=== PATIENT | male | born 1970 | race Hispanic/Latino ===

== ENCOUNTER 2018-01-30 13:07 | Inpatient (IN) | payer BC ==
[2018-01-30 13:07] VITALS: BMI 25.7
[2018-01-30 14:16] LABS: BASO # 0.1 K/uL (0.0-0.2); BASO % 0.8 % (0.0-2.0); EOS # 0.1 K/uL (0.0-0.7); EOS % 0.9 % (0.0-4.0); LYMPH # 2.1 K/uL (1.0-4.3); LYMPH % 29.7 % (20.0-40.0); MEAN CELL VOLUME 95.2 fL (80.0-94.0); MEAN CORPUSCULAR HEMOGLOBIN 33.6 pg (27.0-31.0); MEAN CORPUSCULAR HGB CONC 35.3 g/dL (33.0-37.0); MEAN PLATELET VOLUME 8.4 fL (7.2-11.7); MONO # 0.7 K/uL (0.0-0.8); MONO % 9.9 % (0.0-10.0); NEUT # 4.1 K/uL (1.8-7.0); NEUT % 58.7 % (50.0-75.0); NRBC % 0.1 % (0.0-2.0); RBC 4.77 Mil/uL (4.40-5.90)
[2018-01-30 14:20] LABS: URINE BILIRUBIN NEGATIVE (NEGATIVE); URINE BLOOD NEGATIVE (NEGATIVE); URINE CLARITY Clear (Clear); URINE COLOR Straw (YELLOW); URINE GLUCOSE (UA) NORMAL (Normal); URINE LEUKOCYTE ESTERASE NEG Leu/uL (Negative); URINE PROTEIN NEGATIVE (NEGATIVE); URINE UROBILINOGEN NORMAL mg/dL (0.2-1.0)
[2018-01-30 14:24] LABS: ALB/GLOB RATIO 1.1 (1.0-2.1); ALBUMIN 4.4 g/dL (3.5-5.0); ALT/SGPT 20 U/L (21-72); AST/SGOT 50 U/L (17-59); BLOOD UREA NITROGEN 4 mg/dL (9-20); CALCIUM 9.2 mg/dl (8.6-10.4); GFR AFRICAN-AMERICAN > 60; GFR NON-AFRICAN AMERICAN > 60
[2018-01-30 14:35] LABS: BARBITURATES, UR NEGATIVE (NEGATIVE); BENZODIAZEPINES, UR NEGATIVE (NEGATIVE); OPIATES, UR NEGATIVE (NEGATIVE); PHENCYCLIDINE, UR NEGATIVE (NEGATIVE)
--- NOTE | 2018-01-30 15:02 | C.PDOC ---
History Of Present Illness 47-year-old male, presents to the emergency department requesting detox from alcohol. Patient states he last drank today. No SI/HI. Denies PMH. Last detox attempt approx 2 yearas ago. Pt has no complaints. Time Seen by Provider: 01/30/18 13:38 Chief Complaint (Nursing): Substance Abuse History Per: Patient History/Exam Limitations: no limitations Past Medical History Reviewed: Historical Data, Nursing Documentation, Vital Signs Vital Signs: Last Vital Signs Temp 98.4 F 01/30/18 14:56 Pulse 92 H 01/30/18 14:56 Resp 18 01/30/18 14:56 BP 125/83 01/30/18 14:56 Pulse Ox 100 01/30/18 15:05 - Medical History PMH: Anxiety, Depression, Fractures (vertebral) - [facility] Procedures ALCOHOL DETOXIFICATION (11/18/13) INJECT/INFUSE NEC (10/16/13) PSYCHIAT DRUG THERAP NEC (11/20/13) Family History: States: No Known Family Hx - Social History Hx Tobacco Use: No Hx Alcohol Use: Yes Hx Substance Use: No - Immunization History Hx Tetanus Toxoid Vaccination: No Hx Influenza Vaccination: Yes Hx Pneumococcal Vaccination: No Review Of Systems Constitutional: Negative for: Fever, Chills Cardiovascular: Negative for: Chest Pain Respiratory: Negative for: Shortness of Breath Gastrointestinal: Negative for: Vomiting Musculoskeletal: Negative for: Back Pain Skin: Negative for: Rash Neurological: Negative for: Weakness, Numbness, Headache, Dizziness Psych: Negative for: Suicidal ideation, Withdrawal Physical Exam - Physical Exam Appears: Non-toxic, No Acute Distress, Other (EtOh on breath. No tremors. ) Skin: Normal Color, Warm, Dry, No Rash Head: Atraumatic, Normacephalic Eye(s): bilateral: Normal Inspection, EOMI Nose: Normal Oral Mucosa: Moist Neck: Normal ROM, Supple Chest: Symmetrical Cardiovascular: Rhythm Regular Respiratory: Normal Breath Sounds, No Accessory Muscle Use Extremity: Normal ROM, No Deformity, No Swelling Neurological/Psych: Oriented x3, Normal Speech ED Course And Treatment - Laboratory Results Result Diagrams: 01/30/18 14:08 01/30/18 14:08 O2 Sat by Pulse Oximetry: 100 (RA) Pulse Ox Interpretation: Normal Progress Note: PT has no complaints. Pt was seen and evaluated by postal worker , who discussed ot with Dr Alcaraz and agreed upon plan and admisison. Disposition - Disposition Disposition: HOSPITALIZED Disposition Time: 15:00 Condition: STABLE - Clinical Impression Clinical Impression: Alcohol dependence - Scribe Statement The provider has reviewed the documentation as recorded by the Scribe (Heather Mcclellan) All medical record entries made by the Scribe were at my direction and personally dictated by me. I have reviewed the chart and agree that the record accurately reflects my personal performance of the history, physical exam, medical decision making, and the department course for this patient. I have also personally directed, reviewed, and agree with the discharge instructions and disposition.
[2018-01-30] MEDS: Multiple Vitamins Tab PO SCH (17:03)
--- NOTE | 2018-01-30 17:51 | PCM.PSYCH ---
Initial Psychiatric Evaluation - Initial Psychiatric Evaluation Type of Admission: Voluntary Legal Status: Capacity Chief Complaint (in patient's own words): "Alcohol" History of Present Illness and Precipitating Events: The pt is seen, chart reviewed and case discussed. He is a 47 yo WM, single, no child, employed at [employer], lives with his brother. He is here for alcohol detox: drinks "all day long" bc he gets into "bad withdrawals" otherwise. He drinks dozens of beer he says, starting from the morning and on. No drugs but cigarettes - 1.5 ppd He has been to 2 rehabs and 3 detoxes previously, and 2 IOPs ([facility]) and was in DTs few times, no seizures Longest sobriety was 2 years b/c "my liver was shot." That was in his 30's Past psych hx: Denies Medical hx: Denies Family psych hx: Fa was an alcoholic Current Medications: Active Medications Generic Name Dose Route Start Last Admin Trade Name Freq PRN Reason Stop Dose Admin Chlordiazepoxide 0 mg 01/30/18 18:00 01/30/18 17:03 Librium PO 02/04/18 17:59 50 mg Q6 VÍCTOR Administration Taper Chlordiazepoxide 25 mg 01/30/18 16:12 Librium PO Q4H PRN Alcohol Withdrawal Clonidine HCl 0.1 mg 01/30/18 16:12 Catapres PO Q4H PRN Symptoms of alcohol withdrawl Folic Acid 1 mg 01/30/18 16:15 01/30/18 17:03 Folic Acid PO 1 mg DAILY VÍCTOR Administration Hydroxyzine HCl 50 mg 01/30/18 16:14 Atarax PO Q6H PRN Anxiety Multivitamins 1 tab 01/30/18 16:15 01/30/18 17:03 Hexavitamin PO 1 tab DAILY VÍCTOR Administration Pantoprazole Sodium 40 mg 01/31/18 10:00 Protonix Ec Tab PO DAILY VÍCTOR Pneumococcal Polyvalent Vaccine 0.5 ml 02/02/18 10:15 Pneumovax 23 Vaccine SC 02/02/18 10:16 .ONCE ONE Thiamine HCl 100 mg 01/30/18 16:15 01/30/18 17:03 Vitamin B1 Tab PO 100 mg DAILY VÍCTOR Administration Trazodone HCl 100 mg 01/30/18 22:00 Desyrel PO HS VÍCTOR Past Psychiatric History - Past Psychiatric History Previous Treatment History: None Pertinent Medical Hx (Current Medical&Sleep Prob, Allergies): Allergies Allergy/AdvReac Type Severity Reaction Status Date / Time No Known Allergies Allergy Verified 01/30/18 13:28 Lorazepam [Ativan] 1 mg PO DAILY 11/16/13 Pantoprazole [Protonix] 40 mg PO DAILY 11/16/13 Review of Systems - Neurological Neurological: Tremor - Psychiatric Psychiatric: Abnormal Sleep Pattern, Anxiety, Change in Appetite, Difficulty Concentrating. absent: Hallucinations, Homicidal Ideation, Suicidal Ideation Mental Status Examination - Personal Presentation Personal Presentation: Looks stated age - Affect Affect: Constricted - Motor Activity Motor Activity: Calm - Reliability in Providing Information Reliability in Providing Information: Good - Speech Speech: Organized - Mood Mood: Anxious - Formal Thought Process Formal Thought Process: No Impairment - Cognitive Functions Orientation: Person, Place, Situation, Time Sensorium: Alert Attention/Concentration: Attentive Estimate of Intelligence: Average Judgement: Intact, as evidence by: Insight regarding need for hospitalization Memory: Recent intact, as evidence by: Ability to recall events of the day, Remote intact, as evidenced by: Abilit to recall sig. life events - Risk Risk: Withdrawal, Diminished functioning - Strength & Assets Inventory Strength & Assets Inventory: Cooperative - Limitations Limitations: Living alone DSM 5 DX - DSM 5 DSM 5 Diagnosis: Alcohol withdrawal Alcohol use d.o - severe Anxiety d/o - unspecified - Recommended/Plan of Treatment Treatment Recommendations and Plan of Treatment: Librium detox As needed medications Gabapentin for augmentation and anxiety All risks, benefits and alternatives of medications, including no medications, discussed and the patient understood and agreed. Attend groups and activities Supportive therapy and psychoeducation [place] for abstinence CBT for relapse prevention Encourage MAT: Naltreexone Refer to rehab or IOP Attend self-help groups as well [place] for smoking cessation and patch if needed 34 min Projected ELOS: 5 days Prognosis: good with treatment - Smoking Cessation Smoking Cessation Initiated: Yes
--- NOTE | 2018-01-30 18:10 | PCM.BM ---
<Ailin Wagner - Last Filed: 01/30/18 18:09> Treatment Plan Problems - Problems identified on initial assessmt ETOH DEPENDENCE Date Initiated: 01/30/18 Time Initiated: 18:09 Assessment reference: NA Status: Active Treatment assets and liabiliti Patient Assests: cooperative, ADL independent Patient Liabilities: substance abuse - Milieu Protocol Maintain good personal hygiene: daily Encourage regular showers, daily Remind patient to perform daily oral care, daily Assist patient to perform ADL's Maintain personal safety: every shift Educate patient to report safety concerns to staff, every shift Monitor environment for contraband/sharps Medication safety: Monitor for expected outcome, potential side effects: every shift, Assess barriers to learning: every shift, Assess readiness for medication education: every shift Milieu Narrative: Librium detox As needed medications Gabapentin for augmentation and anxiety All risks, benefits and alternatives of medications, including no medications, discussed and the patient understood and agreed. Attend groups and activities Supportive therapy and psychoeducation [place] for abstinence CBT for relapse prevention Encourage MAT: Naltreexone Refer to rehab or IOP Attend self-help groups as well [place] for smoking cessation and patch if needed 34 min Discharge/Continuing Care - Treatment Team Participation Patient/Family/SO Statement: Librium detox As needed medications Gabapentin for augmentation and anxiety All risks, benefits and alternatives of medications, including no medications, discussed and the patient understood and agreed. Attend groups and activities Supportive therapy and psychoeducation [place] for abstinence CBT for relapse prevention Encourage MAT: Naltreexone Refer to rehab or IOP Attend self-help groups as well [place] for smoking cessation and patch if needed 34 min <Maricel Alcaraz - Last Filed: 01/30/18 22:42> - Diagnosis (1) Alcohol dependence Status: Acute Interventions: 01/30/18 22:42 * Assess 7x/week regarding severity of withdrawal * Educate regarding risks, benefits, side effects and alternatives of medications * Use Motivational Interviewing for abstinence * Use CBT for relapse prevention * Medication management for withdrawal symptoms * Encourage medication assisted treatment *
[2018-01-31] MEDS: Multiple Vitamins Tab PO SCH (11:11)
[2018-01-31] MEDS: Pantoprazole 40 mg EC Tab PO SCH (11:11)
--- NOTE | 2018-02-01 07:03 | PCM.PYCHPN ---
Psychiatric Progress Note - Psychiatric Progress Note Patient seen today, length of contact: 15 min Patient Chief Complaint: I am feeling anxious Problems Identified/Issues Discussed: Patient seen and evaluated, chart reviewed and discussed with the nurse. Patient reports anxiety and still reports withdrawal symptoms including shakes, sweating and headaches. He denies any feelings of hopelessness and helplessness. He denies any suicidal ideation or homicidal ideation. Patient denies any auditory or visual hallucinations, or any psychotic symptoms. He reports improvement in his sleep and appetite. He is tolerating the withdrawal medications and denies any side effects. Supportive therapy and psychoeducation were given. Medication Change: Yes (Librium taper) Medical Record Reviewed: Yes Mental Status Examination - Cognitive Function Orientation: Person, Place, Situation, Time Memory: Intact Attention: WNL Concentration: Poor Association: WNL Fund of Knowledge: Poor - Mood Mood: Anxious - Affect Affect: Constricted - Speech Speech: Soft - Formal Thought Process Formal Thought Process: No Impairment - Suicidal Ideation Suicidal Ideation: No - Homicidal Ideation Homicidal Ideation: No Goal/Treatment Plan - Goal/Treatment Plan Need for Continued Stay: Severe depression anxiety, Severe functional impairment Progress Toward Problem(s) and Goals/Treatment Plan: Alcohol withdrawal Alcohol use d.o - severe Anxiety d/o - unspecified Librium detox As needed medications Gabapentin for augmentation and anxiety All risks, benefits and alternatives of medications, including no medications, discussed and the patient understood and agreed. Attend groups and activities Supportive therapy and psychoeducation [place] for abstinence CBT for relapse prevention Encourage MAT: Naltreexone Refer to rehab or IOP Attend self-help groups as well [place] for smoking cessation and patch if needed
[2018-02-01] MEDS: Multiple Vitamins Tab PO SCH (10:10)
[2018-02-01] MEDS: Pantoprazole 40 mg EC Tab PO SCH (10:11)
[2018-02-02] MEDS: Multiple Vitamins Tab PO SCH (09:21)
[2018-02-02] MEDS: Pantoprazole 40 mg EC Tab PO SCH (09:21)
[2018-02-02] MEDS ORDERED: Pneumococcal 23-Valent Vaccine SC ONE (10:15)
--- NOTE | 2018-02-02 16:07 | PCM.PYCHPN ---
Psychiatric Progress Note - Psychiatric Progress Note Patient seen today, length of contact: 15 min Patient Chief Complaint: I am feeling little better than yesterday.' Problems Identified/Issues Discussed: Patient seen and evaluated, chart reviewed and discussed with the nurse. Patient reports some improvement in his anxiety and some improvement in the withdrawal symptoms. He denies any suicidal ideation or homicidal ideation and denies any auditory or visual hallucinations, or any psychotic symptoms. He reports improvement in his sleep and appetite. He is tolerating the withdrawal medications and denies any side effects. Supportive therapy and psychoeducation were given. Medication Change: Yes (Librium taper) Medical Record Reviewed: Yes Mental Status Examination - Cognitive Function Orientation: Person, Place, Situation, Time Memory: Intact Attention: WNL Concentration: Poor Association: WNL Fund of Knowledge: Poor - Mood Mood: Anxious - Affect Affect: Constricted - Speech Speech: Soft - Formal Thought Process Formal Thought Process: No Impairment - Suicidal Ideation Suicidal Ideation: No - Homicidal Ideation Homicidal Ideation: No Goal/Treatment Plan - Goal/Treatment Plan Need for Continued Stay: Severe depression anxiety, Severe functional impairment Progress Toward Problem(s) and Goals/Treatment Plan: Alcohol withdrawal Alcohol use d.o - severe Anxiety d/o - unspecified Librium detox As needed medications Gabapentin for augmentation and anxiety All risks, benefits and alternatives of medications, including no medications, discussed and the patient understood and agreed. Attend groups and activities Supportive therapy and psychoeducation [place] for abstinence CBT for relapse prevention Encourage MAT: Naltreexone Refer to rehab or IOP Attend self-help groups as well [place] for smoking cessation and patch if needed
--- NOTE | 2018-02-03 09:09 | PCM.PYCHPN ---
Psychiatric Progress Note - Psychiatric Progress Note Patient seen today, length of contact: 15 min Patient Chief Complaint: I am feeling little better than yesterday.' Problems Identified/Issues Discussed: Patient seen and evaluated, chart reviewed and discussed with the nurse. Patient reports some improvement in his anxiety and some improvement in the withdrawal symptoms. He denies any suicidal ideation or homicidal ideation and denies any auditory or visual hallucinations, or any psychotic symptoms. He reports improvement in his sleep and appetite. He is tolerating the withdrawal medications and denies any side effects. Supportive therapy and psychoeducation were given. Medication Change: Yes (Librium taper) Medical Record Reviewed: Yes Mental Status Examination - Cognitive Function Orientation: Person, Place, Situation, Time Memory: Intact Attention: WNL Concentration: Poor Association: WNL Fund of Knowledge: Poor - Mood Mood: Anxious - Affect Affect: Constricted - Speech Speech: Soft - Formal Thought Process Formal Thought Process: No Impairment - Suicidal Ideation Suicidal Ideation: No - Homicidal Ideation Homicidal Ideation: No Goal/Treatment Plan - Goal/Treatment Plan Need for Continued Stay: Severe depression anxiety, Severe functional impairment Progress Toward Problem(s) and Goals/Treatment Plan: Alcohol withdrawal Alcohol use d.o - severe Anxiety d/o - unspecified Librium detox As needed medications Gabapentin for augmentation and anxiety All risks, benefits and alternatives of medications, including no medications, discussed and the patient understood and agreed. Attend groups and activities Supportive therapy and psychoeducation [place] for abstinence CBT for relapse prevention Encourage MAT: Naltreexone Refer to rehab or IOP Attend self-help groups as well [place] for smoking cessation and patch if needed
[2018-02-03] MEDS: Multiple Vitamins Tab PO SCH (09:19)
[2018-02-03] MEDS: Pantoprazole 40 mg EC Tab PO SCH (09:20)
[2018-02-03 13:34] VITALS: O2SAT 98
[2018-02-04 05:14] VITALS: BP 121/76; PULSE 89; RESP 18; TEMP 97.6
--- NOTE | 2018-02-04 08:55 | PCM.PYCHDC ---
Mental Status Examination - Mental Status Examination Orientation: Person, Place, Situation, Time Memory: Intact Mood: Anxious Affect: Constricted Speech: Appropriate Attention: WNL Concentration: Poor Association: WNL Fund of Knowledge: WNL Formal Thought Process: No Impairment Suicidal Ideation: No Current Homicidal Ideation?: No Discharge Summary - Discharge Note Reason for Hospitalization: Alcohol detox Consultations:: List each consultation separately and include: 1. Reason for request. 2. Findings. 3. Follow-up Summary of Hospital Course include:: 1. Description of specific treatment plan utilized for patients during their course of treatmen. 2. Summarize the time- course for resolution of acute symptoms and/or regressed behaviors. 3. Describe issues identified and worked on during hospitalization. 4. Describe medication utilized. 5. Describe medical problems identified and treated. 6. Reassessment of suicide risk Summary of Hospital Course: The pt is seen, chart reviewed and case discussed. On admission: He is a 47 yo WM, single, no child, employed at [employer], lives with his brother. He is here for alcohol detox: drinks "all day long" bc he gets into "bad withdrawals" otherwise. He drinks dozens of beer he says, starting from the morning and on. No drugs but cigarettes - 1.5 ppd He has been to 2 rehabs and 3 detoxes previously, and 2 IOPs ([facility] and [facility]) and was in DTs few times, no seizures Longest sobriety was 2 years b/c "my liver was shot." That was in his 30's Past psych hx: Denies Medical hx: Denies Family psych hx: Fa was an alcoholic Hospital course: The pt was admitted and started on treatment with psychotherapy, support, psychoeducation and medications. [place] and CBT used. The pt attended groups and activities, as well as milieu therapy. All the risks and benefits of medications are discussed and the patient understood and agreed. The pt improved with the treatments provided. After care discussed with the patient. He will go to an indiv therapist and Vivitrol shot. He refused rehab and IOP ("I hate groups") - Final Diagnosis (DSM 5) Condition upon Discharge: STABLE DSM 5: Alcohol withdrawal Alcohol use d.o - severe Anxiety d/o - unspecified Disposition: HOME/ ROUTINE Follow-up Treatment Plan: Librium detox As needed medications Gabapentin for augmentation and anxiety All risks, benefits and alternatives of medications, including no medications, discussed and the patient understood and agreed. Attend groups and activities Supportive therapy and psychoeducation [place] for abstinence CBT for relapse prevention Encourage MAT: Naltreexone Refer to rehab or IOP Attend self-help groups as well [place] for smoking cessation and patch if needed 34 min Prescriptions/Medication Reconciliation: Gabapentin [Neurontin] 300 mg PO TID #90 cap Naltrexone [Revia] 50 mg PO DAILY #30 tab Pantoprazole [Protonix EC Tab] 40 mg PO DAILY #30 ect traZODone [Desyrel] 100 mg PO HS #30 tab - Smoking Cessation Smoking Cessation Medication prescribed: No - Antipsychotic Medications Pt discharged on 2 or more routine antipsychotic medications: No
[2018-02-04] MEDS: Multiple Vitamins Tab PO SCH (09:40)
[2018-02-04] MEDS: Pantoprazole 40 mg EC Tab PO SCH (09:40)
== END 2018-02-04 09:56 | disposition home or self-care (01) | DRG 895 ==
LOC: C.ER 13:07 → C.9E 14:52 → C.7D 15:28
PROVIDERS: ADMIT Psychiatry & Neurology Psychiatry; ATTEND Psychiatry & Neurology Psychiatry
PROC: HZ2ZZZZ Detoxification Services for Substance Abuse Treatment (ICD-10-PCS; principal; 2018-01-30)
PROC: HZ52ZZZ Individual Psychotherapy for Substance Abuse Treatment, Cognitive-Behavioral (ICD-10-PCS; 2018-01-30)
PROC: HZ59ZZZ Individual Psychotherapy for Substance Abuse Treatment, Supportive (ICD-10-PCS; 2018-01-30)
PROC: HZ56ZZZ Individual Psychotherapy for Substance Abuse Treatment, Psychoeducation (ICD-10-PCS; 2018-01-30)
PROC: HZ42ZZZ Group Counseling for Substance Abuse Treatment, Cognitive-Behavioral (ICD-10-PCS; 2018-01-30)
PROC: HZ46ZZZ Group Counseling for Substance Abuse Treatment, Psychoeducation (ICD-10-PCS; 2018-01-30)
DX: F10.230 Alcohol dependence with withdrawal, uncomplicated (principal); Y90.7 Blood alcohol level of 200-239 mg/100 ml; F41.9 Anxiety disorder, unspecified